=== PATIENT | male | born 1955 | race Caucasian/White ===

== ENCOUNTER → 2017-11-17 08:56 | Outpatient (CLI) | payer BC, SELFPAY ==
[2017-11-17 10:50] LABS: Add Manual Diff / Slide Review NO; Basophils Percent Auto 0.9 % (0-2); Eosinophils Percent Auto 1.5 % (2-4); Hematocrit 48.3 % (41-53); Hemoglobin 16.4 g/dL (13.5-17.5); Lymphocytes Percent Auto 28.9 % (25-40); Mean Corpuscular HGB Conc 33.9 % (30-36); Mean Corpuscular Hemoglobin 33.5 PG (26-34); Mean Corpuscular Volume 98.9 fL (80-100); Monocytes Percent Auto 11.8 % (3-14); Neutrophils Absolute Auto 2700 /uL (3000-5900); Neutrophils Percent Auto 56.9 % (50-75); Platelet Count 243 X10^3/uL (150-400); Red Blood Cell Count 4.89 X10^6/uL (4.5-5.9); Red Cell Distribution Width 13.3 % (11.6-14.8); White Blood Cell Count 4.8 X10^3/uL (4.5-11.0)
[2017-11-17 11:07] LABS: Alanine Aminotransferase 48 IU/L (21-72); Albumin 4.3 g/dL (3.5-5.0); Albumin Globulin Ratio 1.6 (1.0-2.8); Alkaline Phosphatase 79 U/L (38-126); Aspartate Aminotransferase 51 IU/L (17-59); Bilirubin Total 1.3 mg/dL (0.2-1.3); Blood Urea Nitrogen 14 mg/dL (9-20); Calcium 9.3 mg/dL (8.4-10.2); Carbon Dioxide 29 mmol/L (22-32); Chloride 101 mmol/L (98-107); Cholesterol 133 mg/dL (140-199); Estimated Glomerular Filt Rate > 60.0 mL/min (>60); Globulin 2.7 g/dL (1.7-4.1); Glucose 91 mg/dL (80-110); HDL Cholesterol 30 mg/dL (40-60); HEMOLYSIS < 15 (0-50); LDL Cholesterol Calculated 85 mg/dL (<100); Potassium 4.5 mmol/L (3.4-5.1); Sodium 145 mmol/L (137-145); Triglycerides 89 mg/dL (35-150); Uric Acid 5.1 mg/dL (3.5-8.5)
[2017-11-17 11:31] LABS: Prostate Specific Antigen Scrn 0.641 ng/mL (0.1-4.0)
[2017-11-17 12:21] LABS: Thyroid Stimulating Hormone 0.75 uIU/mL (0.47-4.68)
== END ==
PROVIDERS: PCP Family Medicine; Visit Provider Family Medicine
DX: E78.5 Hyperlipidemia, unspecified (principal); I10 Essential (primary) hypertension; R19.7 Diarrhea, unspecified; Z51.81 Encounter for therapeutic drug level monitoring; Z12.5 Encounter for screening for malignant neoplasm of prostate
CPT/HCPCS: 36415; 80053; 80061; 84443; 84550; 85025; 87015; 87045; 87427; 87899; G0103

== ENCOUNTER → 2018-04-07 13:56 | Outpatient (CLI) | payer BC, SELFPAY ==
[2018-04-07 16:52] LABS: Campylobacter Not Detected (Not Detect); Clostridium difficile toxin AB Not Detected (Not Detect); Enteroaggregative E.coli Not Detected (Not Detect); Enteropathogenic E.coli Not Detected (Not Detect); Enterotoxigenic E.coli It/st Not Detected (Not Detect); Plesiomonsa shigelloides Not Detected (Not Detect); Salmonella Not Detected (Not Detect); Shiga-like toxin-prod E.coli Not Detected (Not Detect); Vibrio Not Detected (Not Detect); Vibrio cholerae Not Detected (Not Detect); Yersinia enterocolitica Not Detected (Not Detect)
[2018-04-07 16:53] LABS: Adenovirus F 40/41 Not Detected (Not Detect); Astrovirus Not Detected (Not Detect); Cryptosporidium Not Detected (Not Detect); Cyclospora cayetanensis Not Detected (Not Detect); Entamoeba histolytica Not Detected (Not Detect); Giardia lamblia Not Detected (Not Detect); Norovirus GI/GII Not Detected (Not Detect); Rotavirus A Not Detected (Not Detect); Sapovirus Not Detected (Not Detect); Shigella/Enteroinvasive E.coli Not Detected (Not Detect)
== END ==
PROVIDERS: PCP Family Medicine; Visit Provider Family Medicine
DX: R19.7 Diarrhea, unspecified (principal)
CPT/HCPCS: 87177; 87507

== ENCOUNTER → 2018-12-06 08:44 | Outpatient (CLI) | payer BC, SELFPAY ==
--- NOTE | 2018-12-06 08:45 | DI.US.S_ITS ---
PROCEDURE: US PERIPH VENOUS LOW EXTREM LT INDICATIONS: f/u extensive DVT TECHNIQUE: Real-time imaging, as well as color and pulse Doppler interrogation, were performed of the lower extremity deep veins from the inguinal ligament to the popliteal fossa. COMPARISON: Outside Facility, RG, XR WRIST 3V RIGHT, 03/25/2016, 11:40. Outside Facility, RG, US LOWER EXTREMITY VASCULAR UNILATERAL, 07/16/2017, 8:25. Outside Facility, RG, US LOWER EXTREMITY VASCULAR UNILATERAL, 04/16/2017, 10:00. Outside Facility, RG, US LOWER EXTREMITY VASCULAR UNILATERAL, 01/05/2017, 15:01. FINDINGS: There is a small nonocclusive filling defect in the popliteal vein at the trifurcation, suspicious for chronic DVT. The common femoral and femoral veins are normally compressible, and free of intraluminal thrombus. Color and pulse Doppler demonstrate normal phasic intraluminal flow. There is normal augmentation response to distal compression maneuver. IMPRESSION: Suspect small residual chronic nonocclusive DVT in the popliteal artery at the trifurcation. Dictated by: Sultana Haji M.D. on 12/06/2018 at 9:31 Approved by: Sultana Haji M.D. on 12/06/2018 at 9:34
== END ==
PROVIDERS: PCP Family Medicine; Visit Provider Family Medicine
DX: I82.409 Acute embolism and thrombosis of unspecified deep veins of unspecified lower extremity (principal)
CPT/HCPCS: 93971

== ENCOUNTER → 2019-02-07 09:30 | Outpatient (CLI) | payer BC, SELFPAY ==
[2019-02-07 10:37] LABS: Alanine Aminotransferase 46 IU/L (<50); Albumin 4.5 g/dL (3.5-5.0); Albumin Globulin Ratio 1.7 (1.0-2.8); Alkaline Phosphatase 92 U/L (38-126); Aspartate Aminotransferase 44 IU/L (17-59); Bilirubin Total 1.1 mg/dL (0.2-1.3); Blood Urea Nitrogen 20 mg/dL (9-20); Calcium 9.8 mg/dL (8.4-10.2); Carbon Dioxide 27 mmol/L (22-32); Chloride 105 mmol/L (98-107); Cholesterol 166 mg/dL (140-199); Estimated Glomerular Filt Rate > 60.0 mL/min (>60); Globulin 2.6 g/dL (1.7-4.1); Glucose 84 mg/dL (80-110); HDL Cholesterol 34 mg/dL (40-60); HEMOLYSIS < 15 (0-50); LDL Cholesterol Calculated 94 mg/dL (<100); Potassium 4.3 mmol/L (3.4-5.1); Sodium 141 mmol/L (137-145); Total Protein 7.1 g/dL (6.3-8.2); Triglycerides 188 mg/dL (35-150)
[2019-02-07 11:07] LABS: Prostate Specific Antigen Scrn 0.725 ng/mL (0.1-4.0)
== END ==
PROVIDERS: PCP Family Medicine; Visit Provider Family Medicine
DX: I10 Essential (primary) hypertension (principal); Z12.5 Encounter for screening for malignant neoplasm of prostate
CPT/HCPCS: 36415; 80053; 80061; G0103

== ENCOUNTER 2019-06-03 10:25 | Observation (INO) | payer BC, SELFPAY ==
[2019-06-03] VITALS (11 sets, daily range): BP systolic 122–187; BP diastolic 70–104; PULSE 53–71; RESP 12–24; TEMP 36.4–36.9; O2SAT 96–99
--- NOTE | 2019-06-03 | PATH_ITS ---
[facility] Accession Number: [id number] . 01 Material submitted: . hernia - LEFT INGUINAL HERNIA SAC . 01 Clinical history: . INGUINAL HERNIA WORSENING . 02 Diagnosis: Left Inguinal Hernia Sac, Biopsy: Consistent with hernia sac. [facility] 06/07/2019 1224 Local . 02 Electronically signed: . Anne De Paz MD, Pathologist NPI- [id number] . 01 Gross description: . Received in formalin, labeled left inguinal hernia sac, is a piece of varela-white rubbery fatty membranous tissue (4.0 x 2.2 x 0.3 cm). Wheel Lacer And Truer tissue is submitted in cassette A1. ([id number]) /MRV 06/06/2019 1038 Local . 02 Pathologist provided ICD-10: K40.00 . 02 CPT . 648928 Performed at: 01 [facility] [address], [place], [place] [id number] MD Td Canela MD Phone: [phone] Performed at: 02 [facility] [place] [address] [place], [place] [id number] MD Anne De Paz MD Phone: [phone]
--- NOTE | 2019-06-03 10:43 | DI.CT.S_ITS ---
PROCEDURE: CT ABDOMEN PELVIS W CON INDICATIONS: Left hernia worsening w/ increased pain. TECHNIQUE: After the administration of intravenous contrast, 5 mm thick sections acquired from the diaphragm to the symphysis. 5 mm coronal and sagittal reformats were acquired. For radiation dose reduction, the following was used: automated exposure control, adjustment of mA and/or kV according to patient size. COMPARISON: None. FINDINGS: Image quality: Excellent. ABDOMEN: Lung bases: Lung bases are clear. Heart size is normal. Solid organs: Liver is normal in size and enhancement. Gallbladder wall does not appear thickened. Biliary system is non dilated. Pancreas enhances normally. Spleen is normal in size and enhancement. No adrenal nodules. Kidneys demonstrate normal size and enhancement, without hydronephrosis. Prominent simple appearing left-sided renal cysts are seen, with the largest measuring 5.5 cm. Smaller simple appearing right-sided renal cysts are also seen. Peritoneum and bowel: Bowel loops demonstrate normal wall thickness and caliber. No free fluid or air. Incidental note is made of a normal-appearing appendix. Nodes and vessels: No retroperitoneal or mesenteric adenopathy by size criteria. Aorta and inferior vena cava are normal in size. Miscellaneous: No ventral hernias. PELVIS: Genitourinary: Bladder wall thickness is normal. Miscellaneous: No enlarged inguinal or pelvic lymph nodes are seen. There is a fluid and fat-containing left inguinal hernia seen, with surrounding inflammatory change. Right inguinal perivascular clips can be seen. Bones: No suspicious bony lesions. No vertebral body compression fractures. Age-appropriate bony degenerative changes are seen. IMPRESSION: Inflamed appearing left inguinal hernia seen, which contains fluid and omental fat. No bowel can be seen within this hernia. Incidental note is made of: Simple appearing left renal cyst, left more prominent than right Normal appendix Right inguinal perivascular clips Dictated by: Eddie Murphy M.D. on 06/03/2019 at 11:04 Approved by: Eddie Murphy M.D. on 06/03/2019 at 11:07
[2019-06-03 10:57] LABS: Add Manual Diff / Slide Review NO; Basophils Absolute Auto 100 /uL (0-100); Eosinophils Absolute Auto 100 /uL (0-450); Eosinophils Percent Auto 1.1 % (2-4); Hematocrit 47.7 % (41-53); Hemoglobin 16.8 g/dL (13.5-17.5); Lymphocytes Absolute Auto 1200 /uL (1100-4500); Mean Corpuscular HGB Conc 35.1 % (30-36); Mean Corpuscular Hemoglobin 34.8 PG (26-34); Mean Corpuscular Volume 99.1 fL (80-100); Monocytes Absolute Auto 600 /uL (0-900); Monocytes Percent Auto 11.3 % (3-14); Neutrophils Absolute Auto 3700 /uL (1500-7000); Neutrophils Percent Auto 65.6 % (50-75); Platelet Count 234 X10^3/uL (150-400); Red Blood Cell Count 4.82 X10^6/uL (4.5-5.9); Red Cell Distribution Width 13.4 % (11.6-14.8); White Blood Cell Count 5.6 X10^3/uL (4.5-11.0)
[2019-06-03] MEDS: MORPHINE 4 MG/ML INJ IV (10:58)
[2019-06-03] MEDS: SODIUM CHLORIDE 0.9% 1,000 ML 150 ML IV ×2 (10:58→14:51)
[2019-06-03] MEDS: ONDANSETRON 4 MG/2 ML INJ IV (10:58)
[2019-06-03 11:05] LABS: Alanine Aminotransferase 45 IU/L (<50); Albumin 4.4 g/dL (3.5-5.0); Albumin Globulin Ratio 1.4 (1.0-2.8); Alkaline Phosphatase 92 U/L (38-126); Aspartate Aminotransferase 43 IU/L (17-59); BUN Creatinine Ratio 16.5 (6-22); Bilirubin Total 0.7 mg/dL (0.2-1.3); Blood Urea Nitrogen 16 mg/dL (9-20); Calcium 9.3 mg/dL (8.4-10.2); Carbon Dioxide 25 mmol/L (22-32); Chloride 104 mmol/L (98-107); Estimated Glomerular Filt Rate > 60.0 mL/min (>60); Globulin 3.2 g/dL (1.7-4.1); Glucose 102 mg/dL (80-110); HEMOLYSIS < 15 (0-50); Lipase 71 U/L (23-300); Sodium 137 mmol/L (137-145); Total Protein 7.6 g/dL (6.3-8.2)
--- NOTE | 2019-06-03 11:09 | ED.ABDPAIN ---
HPI - Abdominal Pain General Chief Complaint: Abdominal Pain Stated Complaint: inguinal hernia worsening Time Seen by Provider: 06/03/19 10:54 Source: patient Mode of arrival: Ambulatory Limitations: no limitations History of Present Illness HPI narrative: CC: Unable to reduce left inguinal hernia HPI: The patient is a 64-year-old male who has a history of a left inguinal hernia. He was scheduled in early May with Dr. Zarate to have a herniorrhaphy electively which was canceled because of the [place] it crisis. The patient states that he has been able to normally reduce his hernia. However yesterday he developed pain and discomfort early in the day and was able to reduce his hernia. Later that night the patient's hernia recurred and appeared to be larger than before but was able to partially reduce it. This morning the hernia was even larger and more painful and he was unable to reduce it. His last good bowel movement was yesterday and today he had a small bowel movement. He has had no diarrhea and no melena or hematochezia. He denies any fever chills or sweats. He has had no significant shortness of breath cough chest pain palpitations or dizziness. He has had no significant nausea vomiting no diarrhea. He has had no urinary symptoms. He denies a history of diabetes mellitus but has hypertension. The patient's pain and discomfort is a crampy dull achy discomfort that is 6 to 7/10 in intensity especially when he is trying to reduce his hernia. Related Data Previous Rx's Medication Instructions Recorded allopurinol 100 mg tablet 200 mg PO DAILY #180 tab 12/07/18 apixaban 5 mg tablet See Rx Instructions .ROUTE 12/19/18 .COMPLEX #180 tablet atorvastatin 80 mg tablet 80 mg PO DAILY #90 tab 02/15/19 lisinopril 40 mg tablet See Rx Instructions .ROUTE 03/15/19 .COMPLEX #90 tablet docusate sodium 100 mg PO BID #60 cap 06/03/19 oxycodone 5 mg PO Q4H PRN #30 tab 06/03/19 Allergies Allergy/AdvReac Type Severity Reaction Status Date / Time rivaroxaban [From Xarelto] AdvReac Mild itchiness Verified 06/03/19 13:40 Review of Systems Review of Systems Narrative: His review of systems were all negative except for those mentioned in the history of present illness. Patient History Medical History Chicken pox (Resolved ~1960) DVT (deep venous thrombosis) (Chronic 12/2016) Essential tremor (Chronic) Gout (Chronic 2015) Hypertension (Chronic 2002) Measles (Resolved ~1960) Mumps (Resolved ~1960) Surgical History Anesthesia (Resolved) History of left inguinal hernia repair (Resolved 1990) History of right inguinal hernia repair (Resolved 2003) Family History Father Intestinal obstruction Heart disease Stroke Hyperlipidemia Mother Congestive heart failure Diabetes mellitus Brother No problems noted. Brother No problems noted. Brother No problems noted. Grandfather Stroke Heart disease Grandmother Alzheimer's disease Grandfather Heart disease Heart attack Grandmother No problems noted. Family/Other MVA (motor vehicle accident) Social History marital status: household members: spouse housing: other occupational status: employed Smoking Status: Never smoker second hand exposure: No alcohol intake: current substance use type: does not use Smoking Status: Never smoker alcohol intake frequency: 0-2 drinks per day Substance Use Type: does not use Exam Narrative Exam Narrative: PHYSICAL EXAM: CONSTITUTIONAL: Awake, Alert, Oriented, Coherent, Cooperative in NAD. Does not appear toxic or ill. HEAD: AT/NC EENT: PERRL, FROM of eyes, no discharge, no nystagmus He is wearing a mask for the COVID-19. NECK: Supple, no obvious JVD, Trachea is midline without stridor, . SPINE: Palpationof the cervical, Thoracic, Lumbar or Sacral spine reveals no gross deformity or tenderness. No CVA tenderness. THORAX: No deformity, retractions, chest wall tenderness. LUNGS: Clear, symmetrical breath sounds without respiratory distress. HEART: Normal heart tones, regular rhythm and rate without murmur. ABDOMEN: Soft, non-tender, normal bowel sounds without guarding, rebound, rigidity or palpable mass. The patient has a left inguinal hernia that appears to be a direct hernia that is about 3-4 cm in diameter and unable to be reduced. It is tender to palpation. The patient is a circumcised does not extend down into the scrotum. Both testicles appear to be nontender and normal in size. LYMPHATIC: no palpable inguinal lymph nodes or spleen. EXTREMITIES: No edema, deformity, tenderness . SKIN: No rash, bruising, petechiae or purpura. Patient's face appears to be raymundo and erythematous. NEURO: Awake, alert, oriented, conversive, cranial nerves II-XII are symmetrical , moves all 4 extremities and is ambulatory. Initial Vital Signs Initial Vital Signs: Vital Signs Pulse Rate 71 06/03/19 10:35 Respiratory Rate 16 06/03/19 10:35 Blood Pressure 178/104 H 06/03/19 10:35 Pulse Oximetry 98 06/03/19 10:35 Course Course Course Narrative: 12:12; the patient's CT scan of his abdomen reveals an inflamed appearing left inguinal hernia which contains fluid and omental fat. No bowel can be seen within this hernia. Incidental note is made of: Simple appearing left renal cyst left more prominent than right, normal appearing appendix right inguinal perivascular clips present. Will call and discussed the patient with Dr. Zarate general surgeon on-call. 12:17 I discussed the patient with Dr. Zarate who will be down to evaluate the patient. 1223: The patient has a history of deep vein thrombophlebitis in the past for which she is on Eliquis. He stopped his Eliquis 3 days ago. His last meal was last night when he had on ice cream bar before going to bed. He had a couple of black coffee this morning at 7:00 a.m. without cream. The patient and his were informed that will be down to evaluate him. Orders Ordered: Discontinued Medications Acetaminophen (Tylenol) 650 mg PO PACUNOW PRN PRN Reason: Pain, Mild (1-3) Bupivacaine HCl/Epinephrine Bitart (Sensorcaine 0.25% W/ Epi (Pf)) 30 ml INJ NOW ONE Stop: 06/03/19 14:22 Last Admin: 06/03/19 14:21 Dose: 60 ml Documented by: ALEXANDER Bupivacaine Liposome (Exparel) 266 mg INJ NOW ONE Stop: 06/03/19 15:29 Last Admin: 06/03/19 15:29 Dose: 266 mg Documented by: ALEXANDER Fentanyl (Sublimaze) 0 mcg IV Q5M PRN PRN Reason: Pain, Moderate (4-6) Hydromorphone HCl (Dilaudid) 0 mg IV Q5MIN PRN PRN Reason: Pain, Mild (1-3) Sodium Chloride (Normal Saline 0.9%) 1,000 mls @ 150 mls/hr IV CONT JERRI Last Admin: 06/03/19 14:51 Dose: 150 mls/hr Documented by: Infusion: 06/03/19 14:51 Dose: 150 mls/hr Documented by: Admin: 06/03/19 10:58 Dose: 150 mls/hr Documented by: JAVIER Lactated Ringer's (Lactated Ringers) 1,000 mls @ 100 mls/hr IV CONT JERRI Last Infusion: 06/03/19 16:56 Dose: 0 mls/hr Documented by: Admin: 06/03/19 13:44 Dose: 100 mls/hr Documented by: NATHEN Cefazolin Sodium 3 gm/ Sodium (Chloride) 100 mls @ 200 mls/hr IV INTRA-OP ONE Stop: 06/03/19 13:08 Last Infusion: 06/03/19 14:10 Dose: 0 mls/hr Documented by: Admin: 06/03/19 13:50 Dose: 200 mls/hr Documented by: ELLY Metoclopramide HCl (Reglan) 10 mg IV NOW PRN PRN Reason: Nausea And Vomiting Morphine Sulfate (Morphine) 4 mg IV NOW ONE Stop: 06/03/19 10:49 Last Admin: 06/03/19 10:58 Dose: 4 mg Documented by: JAVIER Ondansetron HCl (Zofran) 4 mg IV NOW ONE Stop: 06/03/19 10:49 Last Admin: 06/03/19 10:58 Dose: 4 mg Documented by: JAVIER Ondansetron HCl (Zofran) 4 mg IV NOW PRN PRN Reason: Nausea And Vomiting Vital Signs Vital signs: Vital Signs - 8 hr 06/03/19 10:35 06/03/19 10:37 06/03/19 11:04 Temperature 98.4 F Pulse Rate 71 60 Respiratory Rate 16 18 Blood Pressure [Left Arm] 178/104 H 169/102 H Pulse Oximetry 98 99 06/03/19 12:00 Temperature Pulse Rate 53 L Respiratory Rate 14 Blood Pressure [Left Arm] 158/97 H Pulse Oximetry 96 MDM - Abdominal Pain Medical Records Attestation: I reviewed the patient's medical records. Lab Data Attestation: I reviewed the patient's lab results. Result diagrams: 06/03/19 10:45 06/03/19 10:45 Labs: Lab Results 06/03/19 06/03/19 Range/Units 10:45 10:45 WBC 5.6 (4.5-11.0) X10^3/uL RBC 4.82 (4.5-5.9) X10^6/uL Hgb 16.8 (13.5-17.5) g/dL Hct 47.7 (41-53) % MCV 99.1 (80-100) fL MCH 34.8 H (26-34) PG MCHC 35.1 (30-36) % RDW 13.4 (11.6-14.8) % Plt Count 234 (150-400) X10^3/uL Neut % (Auto) 65.6 (50-75) % Lymph % (Auto) 21.0 L (25-40) % [place] % (Auto) 11.3 (3-14) % Eos % (Auto) 1.1 L (2-4) % Baso % (Auto) 1.0 (0-2) % Neut # (Auto) 3700 (8123-5920) /uL Lymph # (Auto) 1200 (1737-5352) /uL [place] # (Auto) 600 (0-900) /uL Eos # (Auto) 100 (0-450) /uL Baso # (Auto) 100 (0-100) /uL Sodium 137 (137-145) mmol/L Potassium 4.0 (3.4-5.1) mmol/L Chloride 104 (98-107) mmol/L Carbon Dioxide 25 (22-32) mmol/L BUN 16 (9-20) mg/dL Creatinine 0.97 (0.66-1.25) mg/dL Estimated GFR > 60.0 (>60) mL/min BUN/Creatinine Ratio 16.5 (6-22) Glucose 102 (80-110) mg/dL Calcium 9.3 (8.4-10.2) mg/dL Total Bilirubin 0.7 (0.2-1.3) mg/dL AST 43 (17-59) IU/L ALT 45 (<50) IU/L Alkaline Phosphatase 92 (38-126) U/L Total Protein 7.6 (6.3-8.2) g/dL Albumin 4.4 (3.5-5.0) g/dL Globulin 3.2 (1.7-4.1) g/dL Albumin/Globulin Ratio 1.4 (1.0-2.8) Lipase 71 (23-300) U/L Point of care testing: Urine Dip Bedside Urine Glucose Negative Bedside Urine Bilirubin - Negative Bedside Urine Ketone - Negative Urine Specific Premier 1.010 Bedside Urine Occult Blood - Negative Bedside Urine pH 7.0 Bedside Urine Protein - Negative Bedside Urine Urobilinogen - Negative Bedside Urine Nitrite - Negative Bedside Urine Leukocytes - Negative Esterase Discharge Plan Departure Patient Disposition: Admitted as Observation Clinical Impression: Right inguinal pain, Hernia, inguinal, right Discharge Date/Time: 06/03/19 13:37 Instructions: DI for Hernia Repair, DI for Prescription Opioid Use, [facility]: Wound Care Referrals: Velia Granados MD [Primary Care Provider] - Lianna Zarate MD [Physician] - (Call on Wednesday to make a follow up visit to be seen within two to three weeks after the date of surgery. ) Admit Date/Time: 06/03/19 12:58 Admit Provider: Lianna Zarate
--- NOTE | 2019-06-03 12:59 | PM.HP.1 ---
History of Present Illness History of Present Illness Date Patient Seen: 06/03/19 Time Patient Seen: 13:00 Chief complaint: inguinal hernia worsening Narrative: This is a 64-year-old man who had laparoscopic inguinal hernia repair on the right in 1990, and on the left in 2003. A couple of months ago he noticed a bulge in the left groin. He came in to see me in clinic, and we plan on scheduling him for surgery, however this was delayed because of the coronavirus pandemic. Over the last few days he had had worsening pain in the left groin, but the hernia is still reducible. However last night he was walking and he sneezed, and noticed that the hernia bulged out more than ever, and he could not get it back inside. He tried to reduce it himself at home, but could never get although back inside and it is causing him significant pain. He came into the ER and had a CT scan which showed that there is omentum incarcerated in it which appears on the border of strangulation as it is congested and showing signs of inflammatory change. He denies any nausea, vomiting, bloating, fever/chills, obstructive symptoms. He normally takes Eliquis twice daily for history of DVT. He has held it for the last few days, in anticipation of potentially needing something done for the hernia since his symptoms were worsening. ROS: Thirteen system review is otherwise negative other than as mentioned below and in HPI. PE: GENERAL: Alert, mild distress due to groin pain.. Appears stated age. Answers questions promptly and appropriately. Vital signs noted. HENT: Normocephalic, atraumatic. Hearing intact. Oral mucosa is pink and moist. EYES: Conjunctiva pink, sclera white, no periorbital swelling. CARDIOVASCULAR: Regular rate. No pedal edema. RESPIRATORY: Non-tachypneic, breathing comfortably on room air. GASTROINTESTINAL: Abdomen soft and non-distended GENITALURINARY: No flank tenderness. Non reducible left groin bulge, tender on palpation, no skin changes MUSCULOSKELETAL: Equal tone and mass bilaterally. SKIN: Warm, dry, soft, appropriate color for ethnicity. No other lesions, rashes, or wounds. NEURO: Alert and Oriented X 3. No gross sensory deficits, or cognitive issues. PSYCH: Appropriate affect and mood. Patient History Medical History Chicken pox (Resolved ~1960) DVT (deep venous thrombosis) (Chronic 12/2016) Essential tremor (Chronic) Gout (Chronic 2015) Hypertension (Chronic 2002) Measles (Resolved ~1960) Mumps (Resolved ~1960) Surgical History Anesthesia (Resolved) History of left inguinal hernia repair (Resolved 1990) History of right inguinal hernia repair (Resolved 2003) Family & Social History Family History Father Intestinal obstruction Heart disease Stroke Hyperlipidemia Mother Congestive heart failure Diabetes mellitus Brother No problems noted. Brother No problems noted. Brother No problems noted. Grandfather Stroke Heart disease Grandmother Alzheimer's disease Grandfather Heart disease Heart attack Grandmother No problems noted. Family/Other MVA (motor vehicle accident) Social History: household members spouse Safety & Behavioral: Feels Safe in Current Yes Environment Been Physically Hurt or No Threatened By a Person Tobacco & Substance use: Smoking Status Never smoker alcohol intake current alcohol intake frequency 0-2 drinks per day Substance Use Type does not use Meds Home Medications and Allergies Home Medications Medication Instructions Recorded Confirmed Type allopurinol 100 mg tablet 200 mg PO DAILY #180 tab 12/07/18 06/03/19 Rx apixaban 5 mg tablet See Rx Instructions .ROUTE 12/19/18 06/03/19 Rx .COMPLEX #180 tablet atorvastatin 80 mg tablet 80 mg PO DAILY #90 tab 02/15/19 06/03/19 Rx lisinopril 40 mg tablet See Rx Instructions .ROUTE 03/15/19 06/03/19 Rx .COMPLEX #90 tablet docusate sodium 100 mg PO BID #60 cap 06/03/19 Rx oxycodone 5 mg PO Q4H PRN #30 tab 06/03/19 Rx Allergies Allergy/AdvReac Type Severity Reaction Status Date / Time rivaroxaban [From Xarelto] AdvReac Mild itchiness Verified 06/03/19 13:40 Exam Vital Signs (past 8 hours): - 06/03/19 10:35 06/03/19 10:37 06/03/19 11:04 Temperature 98.4 F Pulse Rate 71 60 Respiratory Rate 16 18 Blood Pressure [Left Arm] 178/104 H 169/102 H Pulse Oximetry 98 99 06/03/19 12:00 06/03/19 12:35 Temperature Pulse Rate 53 L 57 L Respiratory Rate 14 16 Blood Pressure [Left Arm] 158/97 H 187/99 H Pulse Oximetry 96 97 Oxygen Delivery Method Room Air Objective Imaging CT scan - abdomen: Radiologist's impression: [address] [address] [address] Scan Report Signed Patient: Izaiah Rodriguez WMR#: [id number] : 7Acct:[id number] Age/Sex: 64 / MDate of Service: 06/03/19 Loc: ED Accession Number: [id number] Procedure: CT abdomen pelvis w con Ordering Provider: Devaughn Reilly MD PROCEDURE: CT ABDOMEN PELVIS W CON INDICATIONS: Left hernia worsening w/ increased pain. TECHNIQUE: After the administration of intravenous contrast, 5 mm thick sections acquired from the diaphragm to the symphysis. 5 mm coronal and sagittal reformats were acquired. For radiation dose reduction, the following was used: automated exposure control, adjustment of mA and/or kV according to patient size. COMPARISON: None. FINDINGS: Image quality: Excellent. ABDOMEN: Lung bases: Lung bases are clear. Heart size is normal. Solid organs: Liver is normal in size and enhancement. Gallbladder wall does not appear thickened. Biliary system is non dilated. Pancreas enhances normally. Spleen is normal in size and enhancement. No adrenal nodules. Kidneys demonstrate normal size and enhancement, without hydronephrosis. Prominent simple appearing left-sided renal cysts are seen, with the largest measuring 5.5 cm. Smaller simple appearing right-sided renal cysts are also seen. Peritoneum and bowel: Bowel loops demonstrate normal wall thickness and caliber. No free fluid or air. Incidental note is made of a normal-appearing appendix. Nodes and vessels: No retroperitoneal or mesenteric adenopathy by size criteria. Aorta and inferior vena cava are normal in size. Miscellaneous: No ventral hernias. PELVIS: Genitourinary: Bladder wall thickness is normal. Miscellaneous: No enlarged inguinal or pelvic lymph nodes are seen. There is a fluid and fat-containing left inguinal hernia seen, with surrounding inflammatory change. Right inguinal perivascular clips can be seen. Bones: No suspicious bony lesions. No vertebral body compression fractures. Age-appropriate bony degenerative changes are seen. IMPRESSION: Inflamed appearing left inguinal hernia seen, which contains fluid and omental fat. No bowel can be seen within this hernia. Incidental note is made of: Simple appearing left renal cyst, left more prominent than right Normal appendix Right inguinal perivascular clips Dictated by: Eddie Murphy M.D. on 06/03/2019 at 11:04 Approved by: Eddie Murphy M.D. on 06/03/2019 at 11:07 Labs Result Diagrams: 06/03/19 10:45 06/03/19 10:45 Labs: Laboratory Results - last 24 hr 06/03/19 06/03/19 10:45 10:45 WBC 5.6 RBC 4.82 Hgb 16.8 Hct 47.7 MCV 99.1 MCH 34.8 H MCHC 35.1 RDW 13.4 Plt Count 234 Neut % (Auto) 65.6 Lymph % (Auto) 21.0 L [place] % (Auto) 11.3 Eos % (Auto) 1.1 L Baso % (Auto) 1.0 Neut # (Auto) 3700 Lymph # (Auto) 1200 [place] # (Auto) 600 Eos # (Auto) 100 Baso # (Auto) 100 Sodium 137 Potassium 4.0 Chloride 104 Carbon Dioxide 25 BUN 16 Creatinine 0.97 Estimated GFR > 60.0 BUN/Creatinine Ratio 16.5 Glucose 102 Calcium 9.3 Total Bilirubin 0.7 AST 43 ALT 45 Alkaline Phosphatase 92 Total Protein 7.6 Albumin 4.4 Globulin 3.2 Albumin/Globulin Ratio 1.4 Lipase 71 Assessment & Plan Assessment and plan (1) Incarcerated left inguinal hernia: Current visit: Yes Status: Acute (2) Recurrent left inguinal hernia: Current visit: No Status: Acute (3) History of left inguinal hernia repair: Current visit: No Status: Resolved (4) History of right inguinal hernia repair: Current visit: No Status: Resolved (5) DVT (deep venous thrombosis): Problem details: unprovoked. recommended lifelong anticoagulation. Eliquis held for the last 3 days. Current visit: No Status: Chronic (6) Anticoagulated by anticoagulation treatment: Current visit: No Status: Acute Assessment & Plan narrative: 64 yo man with acutely incarcerated left inguinal hernia. Risks and benefits of open repair of recurrent incarcerated/strangulated left inguinal hernia were discussed. Risk of bleeding, infection, damage to nearby structures, hernia recurrence, sexual urinary dysfunction, chronic pain, nerve injury, need for additional procedures were discussed. The patient desires to proceed with urgent surgery. Plan: Urgent to OR for open repair of incarcerated/strangulated recurrent left inguinal hernia COVID-19 COVID-19 status: Result pending Time Spent With Patient Time with patient: Greater than 35 minutes Quality VTE Deep Vein Thrombosis/Pulmonary Embolism Present on Admission: No
--- NOTE | 2019-06-03 13:33 | PC.NURSE ---
Patient to OR at this time.
[2019-06-03] MEDS: LACTATED RINGERS 1,000 ML 100 ML IV (13:44)
[2019-06-03] MEDS: CEFAZOLIN VIAL 3 GM in SODIUM CHLORIDE 0.9% 100 ML 200 ML IV (13:50)
--- NOTE | 2019-06-03 14:14 | SUR.OPER ---
Supine on padded OR bed, head on pillow, arms secured on padded arm boards at <90 degrees abduction, legs uncrossed, safety belt at thigh, tape over blanket over lower legs.
[2019-06-03] MEDS: BUPIVACAINE 0.25% W/ EPI 30 ML VIAL INJ (14:21)
[2019-06-03] MEDS: BUPIVACAINE LIPOSOME 266 MG/20 ML VIAL INJ (15:29)
--- NOTE | 2019-06-03 16:12 | PM.OP.1 ---
Operative Date/Time/Diagnoses Date of procedure: 06/03/19 Time of procedure: 16:12 Pre-op diagnosis: Incarcerated recurrent left inguinal hernia Post-op diagnosis: same Procedure & Clinicians Procedure: Emergent open repair of recurrent incarcerated left inguinal hernia, 13985-23 Same procedure as scheduled: Yes Indications: 64 yo man came into the ER with non-reducible left inguinal hernia; CT scan shows incarcerated omentum with vascular congestion and inflammatory response Surgeon: Lianna Zarate Click Yes if Unassisted: Yes Anesthesia Type: General Operative Notes Findings: thickened hernia sac with incarcerated omentum Prosthetic devices, grafts, tissues, transplants, or devices: BARD lightweight polypropelene macroporous mesh Estimated Blood Loss (mL): 2 Procedure in detail: The patient was brought into the OR, placed supine on the OR table, and appropriate preoperative antibiotics were given. Sequential compression devices were placed on both legs and turned on. General anesthesia was induced and the patient was intubated with an LMA by the anesthesiologist. The left lower abdomen and groin were prepped and draped in sterile fashion for inguinal incision. A surgical time out was conducted. Local anesthetic was infiltrated into the skin and a 15 blade was used to make an oblique 10cm incision two finger breadths superior to the inguinal ligament. Dissection was carried down to through the subcutaneous fat and andriy's fascia. There was extensive scarring consistent with prior open inguinal hernia repair. A large hernia bulge was seen coming through the aponeurosis of the external oblique. A roxana was used to encircle the spermatic cord. Prolonged tedious dissection was undertaken to free the scarred hernia sac from the spermatic cord and external oblique aponeurosis. There was evidence of scarred in mesh along the inginal ligament. The heavily scarred direct hernia sac was seen bulging through an opening in the abdominal wall anterior and medial to the internal inguinal ring. Dissection of the hernia sac from the surrounding structures required prolonged operative time and increased level of skill and risk to complete the procedure safely. This was due to the patient's prior hernia repair at this location and his heavily scarred and incarcerated hernia sac. This required twice the normal operative time for this procedure and a modifier 22 will be included. Once dissected free, I opened the external oblique aponeurosis, and starting taking down scar tissue in order to properly expose the appropriate structures. The spermatic cord was scarred to the shelving edge of the inguinal ligament and to the old mesh. The mesh was well incorporated into Poupart's ligament and could not be safely excised. Once all structures were defined, I opened the hernia sac and reduced the omentum from it. I then divided the sac and closed it with running 3-0 Vicryl suture. I found that the entire canal floor was weak and attenuated. I closed the canal floor over the peritoneal closure using running 0 Vicryl, recreating the floor of the inguinal canal. I then gave local anesthetic in the inguinal canal floor, pubic tubercle, and conjoint tendon, using a total of 60mL of 0.25% Marcaine with Epi. I also infiltrated the area with Exparel in small aliquots. A BARD macroporous inguinal hernia mesh was then brought into the field and shaped to fit the groin. I secured it to the ligaments overlying the pubic tubercle with 2cm overlap, and then secured it to the inguinal ligament inferiorly and the conjoint tendon superiorly with 2-0 PDS suture. I made an opening in the mesh to accommodate the spermatic cord. Once the mesh was secure, I closed the external oblique aponeurosis with 3-0 Vicryl. I closed the andriy's fascia with 3-0 Vicryl. The remaining local anesthetic was given in the skin and soft tissue. The skin was closed with running 4-0 Monocryl subcuticular stitch. The skin edges were sealed with Dermabond. The patient was awakened from anesthesia and extubated. He tolerated the procedure well. Needle, sponge and instrument counts were correct x 2. The patient was transferred to PACU in stable condition. Complications: none Post-operative Condition: stable Disposition: PACU
[2019-06-05 09:28] LABS: COVID19 Sendout Not Detected
== END 2019-06-03 16:20 | disposition home or self-care (01) ==
LOC: ED 12:20 → AC 12:59
PROVIDERS: Admitting Provider Surgery; Emergency Provider Emergency Medicine; PCP Family Medicine; Referring Provider Emergency Medicine; Visit Provider Surgery
PROC: (CPT 49521; principal; 2019-06-03 13:05)
DX: K40.31 Unilateral inguinal hernia, with obstruction, without gangrene, recurrent (principal); R10.9 Unspecified abdominal pain; Z79.01 Long term (current) use of anticoagulants; I10 Essential (primary) hypertension; G25.0 Essential tremor; Z86.718 Personal history of other venous thrombosis and embolism; Z03.818 Encounter for observation for suspected exposure to other biological agents ruled out
CPT/HCPCS: 49521; 36415; 74177; 80053; 81003; 83690; 85025; 87635; 96361; 96374; 96375; 99284; C1781; G0378; C9290; J0690; J1100; J1885; J2270; J2405; J2704; J3010; Q9967

== ENCOUNTER → 2019-12-14 15:50 | Outpatient (CLI) | payer BC, SELFPAY ==
[2019-12-14 17:05] LABS: Creatinine Urine Random 127.1 mg/dL
[2019-12-14 17:12] LABS: Microalbumi Creatinin Ratio Ur 22.8 ug/mg CR (<30); Microalbumin Urine Random 2.9 mg/dL (0-1.6)
[2019-12-14 17:30] LABS: Alanine Aminotransferase 37 IU/L (<50); Albumin 4.3 g/dL (3.5-5.0); Albumin Globulin Ratio 1.5 (1.0-2.8); Alkaline Phosphatase 81 U/L (38-126); Aspartate Aminotransferase 40 IU/L (17-59); BUN Creatinine Ratio 15.6 (6-22); Bilirubin Total 0.8 mg/dL (0.2-1.3); Blood Urea Nitrogen 15 mg/dL (9-20); Calcium 9.4 mg/dL (8.4-10.2); Carbon Dioxide 31 mmol/L (22-32); Chloride 104 mmol/L (98-107); Cholesterol 159 mg/dL (140-199); Estimated Glomerular Filt Rate > 60.0 mL/min (>60); Globulin 2.8 g/dL (1.7-4.1); Glucose 86 mg/dL (80-110); HDL Cholesterol 37 mg/dL (40-60); HEMOLYSIS < 15 (0-50); LDL Cholesterol Calculated 92 mg/dL (<100); Potassium 4.3 mmol/L (3.4-5.1); Sodium 139 mmol/L (137-145); Total Protein 7.1 g/dL (6.3-8.2); Triglycerides 149 mg/dL (35-150)
== END ==
PROVIDERS: PCP Family Medicine; Referring Provider Family Medicine; Visit Provider Family Medicine
DX: I10 Essential (primary) hypertension (principal)
CPT/HCPCS: 36415; 80053; 80061; 82043; 82570

== ENCOUNTER → 2020-03-01 09:48 | Outpatient (CLI) | payer BC, SELFPAY | PROVIDERS: PCP Family Medicine; Referring Provider Family Medicine; Visit Provider Podiatrist | DX: Z01.818 Encounter for other preprocedural examination (principal) | CPT/HCPCS: 93005; 93010 ==